=== PATIENT | female | born 1985 | race Caucasian/White ===

== ENCOUNTER 2016-11-01 12:49 | Inpatient (IN) | payer OTHER ==
[~2016-11-01] VITALS: Ht 170.2 cm; Wt 140.5 kg
[2016-11-01 13:13] VITALS: Ht 170.2 cm; Wt 140.5 kg
[2016-11-01] MEDS ORDERED: PREN-99 PO (13:17)
[2016-11-01] MEDS ORDERED: ACET325T33 PO (13:18)
[2016-11-01] MEDS ORDERED: ONDANSETRON (ODT) 4 MG TAB PO PRN (13:30)
[2016-11-01] MEDS ORDERED: MAGNESIUM SULFATE 4 GM/100 ML 100 ML IV ONE (13:30)
[2016-11-01 13:36] LABS: ADD SCAN DIFF NO
[2016-11-01 13:38] LABS: BASOPHIL # 0.1 10^3/ul (0.0-0.1); BASOPHILS % 0.3 % (0.0-2.0); EOSINOPHILS # 0.3 10^3/ul (0.0-0.5); EOSINOPHILS % 1.7 % (0.0-7.0); HEMATOCRIT 29.5 % (37.0-47.0); HEMOGLOBIN 10.3 g/dl (12.0-16.0); LYMPHOCYTES # 2.2 10^3/ul (0.8-2.9); LYMPHOCYTES % 14.1 % (15.0-51.0); MEAN CORPUSCULAR HEMOGLOBIN 33.7 pg (29.0-33.0); MEAN CORPUSCULAR HGB CONC 34.9 g/dl (32.0-37.0); MEAN CORPUSCULAR VOLUME 96.4 fl (82.0-101.0); MEAN PLATELET VOLUME 8.9 fl (7.4-10.4); MONOCYTE # 0.7 10^3/ul (0.3-0.9); MONOCYTES % 4.8 % (0.0-11.0); NEUTROPHIL # 11.8 10^3/ul (1.6-7.5); NEUTROPHILS % 77.2 % (39.0-77.0); PLATELET COUNT 241 10^3/UL (140-415); RED BLOOD COUNT 3.06 10^6/ul (4.20-5.40); RED CELL DISTRIBUTION WIDTH 13.7 % (11.5-14.5); WHITE BLOOD COUNT 15.3 10^3/ul (4.8-10.8)
[2016-11-01 13:40] LABS: ALBUMIN 3.2 g/dl (3.3-4.9)
[2016-11-01 13:42] LABS: INR 0.93; PROTIME 12.5 Sec (12.2-14.2)
[2016-11-01 13:43] LABS: ALBUMIN/GLOBULIN RATIO 1.1; CALCIUM 8.7 mg/dl (8.4-10.2); CREATININE 0.49 mg/dl (0.44-1.00); PARTIAL THROMBOPLASTIN TIME 26.7 Sec (25.0-35.0); TOTAL PROTEIN 6.1 g/dl (6.1-8.1)
[2016-11-01 14:07] LABS: ADD UMIC NO; URINE BILIRUBIN (Dip) NEGATIVE (NEGATIVE); URINE BLOOD (Dip) NEGATIVE (NEGATIVE); URINE COLOR LT. YELLOW (YELLOW); URINE GLUCOSE (Dip) NEGATIVE (NEGATIVE); URINE KETONES (Dip) NEGATIVE (NEGATIVE); URINE LEUKOCYTE ESTERASE (Dip) NEGATIVE (NEGATIVE); URINE NITRITE (Dip) NEGATIVE (NEGATIVE); URINE TOTAL PROTEIN (Dip) NEGATIVE (NEGATIVE); URINE UROBILINOGEN (Dip) 0.2 E.U./dL (0.1-1.0)
[2016-11-01] MEDS: LACTATED RINGER'S 1,000 ML IV SCH ×2 (14:30→22:31)
[2016-11-01] MEDS: BETAMET NA PHOS/AC(6 MG/ML) 5ML INJ IM SCH (14:47)
[2016-11-01] MEDS: MAGNESIUM SULFATE 20 GM/500 ML 500 ML IV SCH (15:13)
[2016-11-01] MEDS: MULTIVIT/MIN/FOLATE/IRON/PREN TAB PO SCH (15:25)
[2016-11-01] MEDS: SENNA/DOCUSATE NA (8.6MG/50MG) TAB PO PRN ×2 (15:25→15:27)
[2016-11-01] MEDS: DOCUSATE SODIUM 100 MG CAP PO SCH (18:25)
[2016-11-02] MEDS: ACETAMINOPHEN 325 MG TAB PO PRN (00:34)
[2016-11-02] MEDS: MAGNESIUM SULFATE 20 GM/500 ML 500 ML IV SCH ×3 (01:04→22:10)
--- NOTE | 2016-11-02 07:58 | PREOPHP ---
DATE OF ADMISSION: 11/01/2016 HISTORY OF PRESENT ILLNESS: This is a 31-year-old lady, 9, para 3 with a spontaneous aborti on. Her EDC by ultrasound done at [facility] is 01/14/2017 and it was noted to be twin . She was admitted as advised by Dr. Zuñiga with perinatologist because of the cer vix that is 1.3 cm. She was admitted for bed rest, for betamethasone and steroids. The plans were explained to the patient and she understood everything totally. The risks, benefits and alternative s were discussed with her as well. PAST PERSONAL HISTORY:. Also, this patient had only been seen in my office once and she never came back. Last visit was 10/19/2016. GYNECOLOGIC HISTORY: She had menarche at the age of 13, every 28 days interval, 3 to 4 days duratio n, and moderate in amount. FAMILY HISTORY: Mother has diabetes and she has family history of hypertension. Her first delivery was 19 years ago, normal delivery, second in 2007 was a , another 2 normal deliveries, 200 2 and 2002. REVIEW OF SYSTEMS: CARDIOVASCULAR: No chest pains. RESPIRATORY: No cough. GASTROINTESTINAL: No diarrhea, no vomiting. GENITOURINARY: No dysuria. PHYSICAL EXAMINATION: GENERAL: Reveals a conscious coherent lady and in acute distress. VITAL SIGNS: Her blood pressure 120/80, pulse rate 80 per minute, respirations 16 per minute. BREASTS, HEART AND LUNGS: Within normal limits. ABDOMEN: Soft. No tenderness noted. Fundic height about 42 cm. heart tones normal for both babies. PELVIC: Deferred. EXTREMITIES: No pedal edema. ADMITTING DIAGNOSIS: A 35 week twin , rule out labor. PLAN: The patient was planned to have the above procedure. Dictated By: JESSICA VIZCARRA/JORY Conf#: [id number] DID#: [id number]
[2016-11-02] MEDS: MULTIVIT/MIN/FOLATE/IRON/PREN TAB PO SCH (09:10)
[2016-11-02] MEDS: DOCUSATE SODIUM 100 MG CAP PO SCH (09:10)
[2016-11-02] MEDS: LACTATED RINGER'S 1,000 ML IV SCH (11:13)
[2016-11-02] MEDS: BETAMET NA PHOS/AC(6 MG/ML) 5ML INJ IM SCH (13:41)
--- NOTE | 2016-11-02 15:33 | CONS ---
DATE OF ADMISSION: 11/01/2016 DATE OF CONSULTATION: 11/02/2016 TYPE OF CONSULTATION: REFERRING PHYSICIAN: Teresa Liz MD I was requested to talk to this 31-year-old -[place] mom, 9, para 3, who was admitte d to antepartum with twin gestation and short cervix. She has been evaluated by the perinatologist and her cervix was found to be 1.3 cm. She was given 1 course of betamethasone and remains on magne sium sulfate. EDC by ultrasound is 01/14/2017. Mom had only 2 visits. I have explained to the mother clinical course, expected problems and outcome with 28 to 30-week twi n gestation premature babies. Estimated weight is 1200 to 1300 grams. I explained to her abo ut survival greater than 80%, respiratory distress syndrome and need for respiratory support with ox ygen and positive-pressure ventilation, need for exogenous surfactant replacement, high risk for sep sis and need for IV antibiotic therapy and intercurrent infections, high risk for intraventricular h emorrhage and long-term vision, hearing and neurodevelopmental problems, retinopathy of prematurity, oxygen dependency and chronic lung disease, feeding problems with necrotizing enterocolitis and gas troesophageal reflux, jaundice and phototherapy, and general treatment plan and general procedures d one in NICU. Mom seems to understand the problems associated with prematurity as she had a prematur e baby who has at 6 years of life earlier. I have addressed mom's concerns and answered her questions. Thank you very much for allowing me to take part in the care of this patient. We will follow the mo ther and the babies as needed. Dictated By: FRANCESCA MANLEY MD SS/NTS Conf#: [id number] DID#: [id number]
[2016-11-03] MEDS: LACTATED RINGER'S 1,000 ML IV SCH ×3 (02:06→19:30)
[2016-11-03] MEDS: MAGNESIUM SULFATE 20 GM/500 ML 500 ML IV SCH (09:08)
[2016-11-03] MEDS: MULTIVIT/MIN/FOLATE/IRON/PREN TAB PO SCH (09:11)
[2016-11-03] MEDS: DOCUSATE SODIUM 100 MG CAP PO SCH (09:11)
--- NOTE | 2016-11-03 11:36 | RADRPT ---
PROCEDURE: Real Time Sonogram. 11/03/201610:30 AM CLINICAL INDICATION: ptl//efw,bryant TECHNIQUE: This procedure was performed on a high-resolution real time Unit using a endovaginal pr obe. COMPARISON: OB sonogram 11/01/2016. PROCEDURE: Real Time Sonogram. 11/03/201610:30 AM CLINICAL INDICATION: ptl//efw,bryant TECHNIQUE: This procedure was performed on a Cata real time Unit using a endovaginal probe. COMPARISON: None FINDINGS: Data for twin A: Presentation: Cephalic presentation. Cervical Length: 1.1 cmPlacental Location: Posterior grade 1 placenta.Placental Previa: No. Body limb and cardiac motion: Yes.Heart rate: 132 beats per minute anatomy was not evaluated on today's exam. sex: Indeterminate. MVP: 5.6; normal. Measured data: HC::26.5 cm.28 weeks 6 days. BPD::7.2 cm.29-week 0 days. AC:24.8 cm.29 weeks 0 days. FC:3.5 cm.28 weeks 1 day. AUA:28 weeks 6 daysplus or minus 2 weeks air days. TYLOR (AUA):January 20, 2017. Serial scan estimated menstrual age: Not calculated. weight: 1281 g plus or minus 192 g. Endovaginal imaging utilized: Yes. Additional findings: No. Additional findings:None DATA FOR TWIN B FINDINGS: Presentation: Cephalic presentation. Cervical Length: 1.1 cmPlacental Location: Anterior grade 1.Placental Previa: No. Body limb and cardiac motion: Yes.Heart rate: 143 beats per minute. anatomy was not evaluated on today's exam. sex: Indeterminate. MVP: 3.9; normal. Measured data: BPD:7.2 cm29 weeks 0 days HC:26.3 cm.28 weeks 4 days. AC:24.4 cm.28 weeks 4 days. FL:6.6 cm.29 weeks 3 days. AUA:28 weeks 6 daysplus or minus 2 weeks 0 days. TYLOR (AUA):January 20, 2017. Serial scan estimated menstrual age: Not calculated. weight: 1302 g plus or minus 195 g Endovaginal imaging utilized:Yes Additional findings:None IMPRESSION: See above RPTAT:AAJJ Rory Schneider Physician Date Time Electronically viewed and signed by Rory Schneider Physician on 11/03/2016 11:35 EZRA/
--- NOTE | 2016-11-03 16:51 | PN ---
Date/Time of Note Date/Time of Note DATE: 11/03/16 TIME: 16:44 OB Subjective Subjective Subjective November 02, 2016 OB consult This patient is 31 years old 8 para 4 3 with EDC of 11/23/2016 which makes her 28 weeks and 1 day her pregnancies twins and due to the fact that an ultrasound by perinatologist reported cyst cervical length of 1.2 cm she came to the hospital and was admitted for workup and treatment of early contractions and delivered. On examination her ear nose throat appear to be normal Neck was normal no neck vein distention no thyroid megaly Her chest was clear Heart normal sinus rhythm no murmur Breasts were soft free of masses nipples were intact Abdomen soft, twin could be palpated heart tone on both twins are normal with good variability and acceleration no B-cell at this time Lower extremities were normal no edema no varicosities I did not repeat her pelvic exam today Laboratory Tests Test 11/02/16 17:51 11/02/16 23:55 11/03/16 06:00 Magnesium Level 3.9mg/dl 4.1mg/dl 4.1mg/dl Current Medications Medications (Trade) Dose Ordered Sig/Marshall Route PRN Reason Start Time Stop Time Status Last Admin Dose Admin Lactated Ringer's 1,000 ml @ 75 mls/hr [id number] IV 11/01/16 13:20 11/03/16 15:01 Magnesium Sulfate 100 ml @ 200 mls/hr ONCE ONCE IV 11/01/16 13:30 11/01/16 13:59 DC 11/01/16 13:30 Magnesium Sulfate (Magnesium Sulfate 20 Gm/500 ml) 500 ml @ 50 mls/hr Q10H IV 11/01/16 13:20 11/03/16 10:22 DC 11/03/16 09:08 Betamethasone Acet/Betameth SodPhos (Celestone Soluspan) 12 mg Q24H IM 11/01/16 13:30 11/02/16 13:31 DC 11/02/16 13:41 Prenat Multivit/ Bunnell/Iron/Folic Ac ( S) 1 tab DAILY PO 11/01/16 13:30 11/03/16 09:11 Docusate Sodium (Colace) 100 mg DAILY PO 11/01/16 13:30 11/03/16 09:11 Acetaminophen (Tylenol Tab) 650 mg Q4H PRN PO PAIN AND OR ELEVATED TEMP 11/01/16 13:30 11/02/16 00:34 Ondansetron HCl (Zofran Odt) 4 mg Q6H PRN PO NAUSEA AND/OR VOMITING 11/01/16 13:30 Senna/Docusate Sodium (Senokot-S) 1 tab DAILY PRN PO CONSTIPATION 11/01/16 14:00 11/01/16 15:27 Her max sulfate will be discontinued due to the fact that she does not have much of the contractions She will have another ultrasound study tomorrow BRIGITTE REINA MD Nov 03, 2016 16:51
[2016-11-04] MEDS: LACTATED RINGER'S 1,000 ML IV SCH ×2 (02:56→11:21)
[2016-11-04] MEDS: SENNA/DOCUSATE NA (8.6MG/50MG) TAB PO PRN (02:56)
[2016-11-04] MEDS: ACETAMINOPHEN 325 MG TAB PO PRN ×5 (03:52→23:50)
[2016-11-04] MEDS: MULTIVIT/MIN/FOLATE/IRON/PREN TAB PO SCH (09:05)
[2016-11-04] MEDS: DOCUSATE SODIUM 100 MG CAP PO SCH (09:05)
[2016-11-04] MEDS ORDERED: CEPHALEXIN 500 MG CAP PO SCH (10:00)
[2016-11-04] MEDS: CEPHALEXIN 500 MG CAP PO SCH ×3 (10:05→21:14)
--- NOTE | 2016-11-04 10:33 | RADRPT ---
PROCEDURE: US OB CLINICAL INDICATION: Unable to obtain heart tones for twin B, pain TECHNIQUE: Multiple sonographic images of the pelvis were obtained. The images were reviewed on a PACS workstation. COMPARISON: No prior studies are available for comparison. FINDINGS: There is a twin viable intrauterine gestation. Twin A Cardiac activity is present with 137 beats per minute. There is a cephalic left presentation. The placenta is posterior. Twin B Cardiac activity is present with 132 beats per minute. There is a cephalic right presentation. The placenta is anterior. RPTAT: AA . IMPRESSION: Live twin gestation . . .Denver Arellano MD, MD Date Time Electronically viewed and signed by .Denver Arellano MD, on 11/04/2016 10:33 .S/
--- NOTE | 2016-11-05 01:01 | CONS ---
DATE OF ADMISSION: 11/01/2016 DATE OF CONSULTATION: 11/04/2016 ADDENDUM: HISTORY OF PRESENT ILLNESS: The patient was admitted on Tuesday or Tuesday from the clinic, after sh e was found to have short cervix of 1.1 cm. She is currently 29 weeks and 3 days. The patient has a history of deliveries and currently is with twins. She had received magnesium quiñones lfate, and magnesium sulfate has been stopped since Tuesday, 24 hours after the second dose of bet amethasone, and currently she is stable. She still has some back pain; however, overall has improve d. It is important to note that the patient apparently has had urinary tract infections at her clin ic, for which she has not been treated since she had missed her appointment at her clinic. Urine cu lture at that time was Proteus mirabilis. Dr. Liz, which is the primary physician, has placed t he patient on Keflex as of yesterday. Urine culture now shows gram-negative rods; however, as of morning, the identity and the sensitivity were pending. Also, she suffers from some tooth abscess; however, she does not have much pain with that. RECOMMENDATIONS: Continue with the Keflex until the urine culture identifies the organism and the s ensitivity is known. Then if antibiotic needs to be changed, please do so. I spoke to the patient today and I strongly advised her to stay until 32 weeks given the short cervi x during and history of 2 previous deliveries at 31 and 32 weeks. She seems to be amenabl e for staying, but at least she needs to stay until the urine culture and sensitivity are back, and she has been treated with appropriate antibiotics for at least 2 days. If the patient decides to go home, please continue with antibiotics appropriately so she can finish the 7-day course of appropriate antibiotics at home. I do not recommend discharging the patient home. Obviously, she can sign out against medical advice , but I do hope after my discussion with her, it will not get to that point. If she starts having contractions again, then magnesium sulfate can be restarted. She also complained of some bilateral lower-extremity swelling. Her blood pressures are normal, and most likely the swelling is because of inactivity. She still has her legs elevated and also some c ompression stockings to have the blood moving. I talked to Dr. Liz about the above recommendati ons. Dictated By: VIOLETA GOLDSMITH/JORY Conf#: [id number] DID#: [id number]
[2016-11-05] MEDS: DOCUSATE SODIUM 100 MG CAP PO SCH (08:53)
[2016-11-05] MEDS: CEPHALEXIN 500 MG CAP PO SCH ×3 (08:53→20:44)
[2016-11-05] MEDS: MULTIVIT/MIN/FOLATE/IRON/PREN TAB PO SCH (08:53)
[2016-11-05] MEDS: ACETAMINOPHEN 325 MG TAB PO PRN ×2 (08:53→20:34)
[2016-11-05 10:28] LABS: ADD SCAN DIFF NO
[2016-11-05 10:30] LABS: BASOPHILS % 0.2 % (0.0-2.0); EOSINOPHILS # 0.1 10^3/ul (0.0-0.5); EOSINOPHILS % 1.1 % (0.0-7.0); HEMATOCRIT 27.5 % (37.0-47.0); HEMOGLOBIN 9.2 g/dl (12.0-16.0); LYMPHOCYTES # 1.9 10^3/ul (0.8-2.9); LYMPHOCYTES % 16.7 % (15.0-51.0); MEAN CORPUSCULAR HEMOGLOBIN 33.2 pg (29.0-33.0); MEAN CORPUSCULAR HGB CONC 33.5 g/dl (32.0-37.0); MEAN CORPUSCULAR VOLUME 99.3 fl (82.0-101.0); MEAN PLATELET VOLUME 8.6 fl (7.4-10.4); MONOCYTE # 0.8 10^3/ul (0.3-0.9); MONOCYTES % 6.7 % (0.0-11.0); NEUTROPHIL # 8.1 10^3/ul (1.6-7.5); NEUTROPHILS % 70.5 % (39.0-77.0); PLATELET COUNT 187 10^3/UL (140-415); RED BLOOD COUNT 2.77 10^6/ul (4.20-5.40); RED CELL DISTRIBUTION WIDTH 13.9 % (11.5-14.5); WHITE BLOOD COUNT 11.4 10^3/ul (4.8-10.8)
[2016-11-05 10:40] LABS: ALBUMIN 3.1 g/dl (3.3-4.9)
[2016-11-05 10:41] LABS: POTASSIUM 3.5 mmol/L (3.5-5.1)
[2016-11-05 10:43] LABS: CREATININE 0.49 mg/dl (0.44-1.00)
[2016-11-05 10:44] LABS: ALBUMIN/GLOBULIN RATIO 1.1; CALCIUM 8.8 mg/dl (8.4-10.2); TOTAL PROTEIN 5.9 g/dl (6.1-8.1)
[2016-11-06] MEDS: DOCUSATE SODIUM 100 MG CAP PO SCH (09:08)
[2016-11-06] MEDS: MULTIVIT/MIN/FOLATE/IRON/PREN TAB PO SCH (09:08)
[2016-11-06] MEDS: CEPHALEXIN 500 MG CAP PO SCH ×3 (09:09→21:06)
[2016-11-06] MEDS: ACETAMINOPHEN 325 MG TAB PO PRN ×3 (09:12→21:08)
--- NOTE | 2016-11-06 14:31 | QN ---
Documentation Comment Laborist hectoring. 31 y.o. A3 with an IUP at 29w1d with a twin and a short cervix. Pt is not ai and is reasonably comfortable except for her b/l swollen legs. Pt is anxious to go home and see her kids but she also understands why she should stay. She has had a C/S in the past, then 2 's both with PTD and the last one delivered at 25 weeks and 6 months later. These twins are currently VTX/VTX. Pt is afebrile, not ai, and the babies look good when monitored q shift.Discussed with pt the importance of staying in the hospital as her family will be more likely to assist with the other children when she is here, we control her activity level and help her out as much as possible. The plan is to keep her in house until 32 weeks. LIZZIE HUA MD Nov 06, 2016 14:31
[2016-11-07] MEDS: MULTIVIT/MIN/FOLATE/IRON/PREN TAB PO SCH (08:30)
[2016-11-07] MEDS: DOCUSATE SODIUM 100 MG CAP PO SCH (08:30)
[2016-11-07] MEDS: CEPHALEXIN 500 MG CAP PO SCH ×3 (08:30→22:07)
[2016-11-07] MEDS: ACETAMINOPHEN 325 MG TAB PO PRN ×3 (08:31→22:11)
[2016-11-08] MEDS: ACETAMINOPHEN 325 MG TAB PO PRN ×3 (06:07→21:05)
[2016-11-08] MEDS: DOCUSATE SODIUM 100 MG CAP PO SCH (08:41)
[2016-11-08] MEDS: CEPHALEXIN 500 MG CAP PO SCH ×3 (08:41→21:05)
[2016-11-08] MEDS: MULTIVIT/MIN/FOLATE/IRON/PREN TAB PO SCH (08:41)
[2016-11-09] MEDS: DOCUSATE SODIUM 100 MG CAP PO SCH (08:49)
[2016-11-09] MEDS: CEPHALEXIN 500 MG CAP PO SCH ×2 (08:49→12:27)
[2016-11-09] MEDS: MULTIVIT/MIN/FOLATE/IRON/PREN TAB PO SCH (08:49)
--- NOTE | 2016-11-09 10:12 | RADRPT ---
PROCEDURE: US OB. CLINICAL INDICATION: Shortened cervix TECHNIQUE: Multiple sonographic images of the pelvis were obtained. Transabdominal imaging only w as performed. The images were reviewed on a PACS workstation. COMPARISON: Ultrasound, 11/04/2016 FINDINGS: Twin intrauterine gestations are identified. Twin A: Cephalic presentation. heart rate is 171 bpm. BPD = 7.25 cm HC = 26.84 cm AC = 25.26 cm FL = 5.95 cm Gestational age is 29 weeks 5 days and TYLOR is 01/20/2017 by both ultrasound criteria and LMP. EFW = 1476 g +/- 221 g (44 %). The placenta is posterior. There is no evidence for an abruption or placenta previa. Twin B: Cephalic presentation. heart rate is 148 bpm. BPD = 7.33 cm HC = 26.75 cm AC = 25.56 cm FL = 5.56 cm Gestational age is 29 weeks 3 days and TYLOR is 01/22/2017 by ultrasound criteria. Gestational age is 29 weeks 5 days and TYLOR is 01/20/2017 by LMP. EFW = 1406 g +/- 211 g (30 %). The placenta is anterior. There is no evidence for an abruption or placenta previa. IMPRESSION: 1. Twin live intrauterine gestations, as above. RPTAT: EE .Amrit Montoya MD, Date Time Electronically viewed and signed by .Amrit Montoya MD, MD on 11/09/2016 10:11 .R/
--- NOTE | 2016-11-09 10:16 | RADRPT ---
PROCEDURE: OB ultrasound for biophysical profile, transabdominal and transvaginal, twin CLINICAL INDICATION: Shortened cervix. Biophysical profile. . TECHNIQUE: Multiple sonographic images of the pelvis were obtained. Transabdominal imaging was pe rformed. Transvaginal images were obtained to assess cervical length. The images were reviewed o n a PACS workstation. COMPARISON: Ultrasound, 11/03/2016 FINDINGS: Twin intrauterine gestations are identified. The cervix is closed and measures 2.3 cm in length Twin A: breathing movement = 2/2 tone = 2/2 motion = 2/2 LILI = 2/2 Single intrauterine gestation is identified in cephalic position. heart rate is 161 bpm. Plac enta is posterior without evidence for abruption or previa. Maximum vertical pocket of fluid measur es 3.31 cm, within normal limits. Twin B: breathing movement = 2/2 tone = 2/2 motion = 2/2 LILI = 2/2 Single intrauterine gestation is identified in cephalic position. heart rate is 146 bpm. Plac enta is anterior without evidence for abruption or previa. Maximum vertical pocket of fluid measure s 3.88 cm, within normal limits. IMPRESSION: 1. Twin live intrauterine gestations. 2. Biophysical profile score is 8/8 for both fetuses. 3. The cervix is closed and is mildly shortened, measuring 2.3 cm in length. On the previous ultra sound, cervical length measured 1.3 cm. RPTAT: PP .Amrit Montoya MD, Date Time Electronically viewed and signed by .Amrit Montoya MD, MD on 11/09/2016 10:16 .R/
[2016-11-09] MEDS: ACETAMINOPHEN 325 MG TAB PO PRN (12:27)
== END 2016-11-09 21:50 | disposition home or self-care (01) | DRG 781 ==
LOC: OBG 12:49
PROVIDERS: ADMIT Obstetrics & Gynecology; ATTEND Obstetrics & Gynecology
DX: O26.873 Cervical shortening, third trimester (principal); O23.43 Unspecified infection of urinary tract in pregnancy, third trimester; O30.003 Twin pregnancy, unspecified number of placenta and unspecified number of amniotic sacs, third trimester; O34.219 Maternal care for unspecified type scar from previous cesarean delivery; Z3A.29 29 weeks gestation of pregnancy
CPT/HCPCS: 76815; 76816; 76817; 76818; 80053; 81003; 83735; 85025; 85384; 85610; 85730; 86900; 86901; 87086; J0702; J3475; J7120